=== PATIENT | female | born 1985 | race Caucasian/White ===

== ENCOUNTER → 2018-12-14 | Outpatient (CLI) | payer OTHER ==
[~2018-12-14] MED LIST: BIRTH CONTROL PILLS; CEPHALEXIN500 M1 PO; NORCO 325 MG-51 TAB PO
== END ==
LOC: DIA.ED
DX: O24.419 Gestational diabetes mellitus in pregnancy, unspecified control (principal); Z3A.30 30 weeks gestation of pregnancy
CPT/HCPCS: G0108

== ENCOUNTER → 2018-12-26 | Outpatient (CLI) | payer OTHER | LOC: DIA.ED 08:36 | DX: O24.419 Gestational diabetes mellitus in pregnancy, unspecified control (principal); Z3A.33 33 weeks gestation of pregnancy | CPT/HCPCS: G0108 ==

== ENCOUNTER → 2019-01-14 | Outpatient (CLI) | payer OTHER | LOC: DIA.ED 14:08 | DX: O24.419 Gestational diabetes mellitus in pregnancy, unspecified control (principal); Z3A.26 26 weeks gestation of pregnancy | CPT/HCPCS: G0108 ==

== ENCOUNTER → 2019-01-22 | Outpatient (CLI) | payer OTHER | LOC: DIA.ED 15:06 | DX: O24.419 Gestational diabetes mellitus in pregnancy, unspecified control (principal); Z3A.35 35 weeks gestation of pregnancy | CPT/HCPCS: G0108 ==

== ENCOUNTER 2019-02-17 10:53 | Inpatient (IN) | payer OTHER ==
[2019-02-17] VITALS (48 sets, daily range): BP systolic 113–137; BP diastolic 61–89; PULSE 86–112; TEMP 97.4–98.8
[~2019-02-17] VITALS: Ht 165.1 cm; Wt 82.3 kg
--- NOTE | 2019-02-17 11:00 | NUR ---
Presents to labor and delivery. States thinks water broke. Amnio test done, positive. Dr. Wood called and orders given to admit patient. Start iv, and start pitocin per policy.
--- NOTE | 2019-02-17 11:30 | NUR ---
Rests in bed, alert. Denies feeling any contractions. 1145 Iv start to left hand by student with this nurse at side. Lab draw done and sent to lab. Fluids of lactated ringers started.
--- NOTE | 2019-02-17 12:00 | NUR ---
Pitocin 2 dorene units iv started as ordered and per protocol. Denies feeling any contractions at this time.
[2019-02-17] MEDS ORDERED: PRENATAL MVI (12:17)
[2019-02-17] MEDS ORDERED: SLOW FE142 MG PO (12:18)
[2019-02-17 12:30] LABS: BASO % 0.2 % (0.0-2.0); EOS % 0.3 % (0-4.0); GRAN # 11.6 (1.4-6.5); GRAN % 81.3 % (42.2-75.2); HEMATOCRIT 37.8 % (37.0-47.0); HEMOGLOBIN 12.4 g/dl (12.5-16.0); LYMPH # 1.6 (1.2-3.4); LYMPH % 11.4 % (20.0-51.0); MEAN CELL VOLUME 87 fl (80.0-100.0); MEAN CORPUSCULAR HEMOGLOBIN 28 pg (27.0-31.0); MEAN CORPUSCULAR HGB CONC 33 g/dl (33.0-37.0); MONO # 0.8 (0.1-0.6); MONO % 5.7 % (1.7-9.3); PLATELET COUNT 189 K/mm3 (130-400); RED BLOOD COUNT 4.36 M/mm3 (4.10-5.30); REDCELL DISTRIBUTION WIDTH-CV 14.9 % (11.5-14.5)
--- NOTE | 2019-02-17 16:15 | NUR ---
Dr. Wood here. Visits with patient. Lets her know that she is going to rupture a fore bag. Moderate amount of bloody show noted. Pad changed, repostioned.
--- NOTE | 2019-02-17 16:30 | NUR ---
1640 Request to have epidural. Anesthesia notified of request.
--- NOTE | 2019-02-17 16:45 | NUR ---
1655 Anesthesia here, visits with patient and spouse. 1707 Space obtained by anesthesia Chase Patton. 1708 Catheter placed by anesthesia. 1709 Catheter placed by anesthesia. Lies back down.
--- NOTE | 2019-02-17 17:15 | NUR ---
Rests in bed, states feeling better.
--- NOTE | 2019-02-17 17:45 | NUR ---
Metzger catheter placed per sterile technique. Moderate amount of clear yellow fluid noted. Faith-care given.
--- NOTE | 2019-02-17 18:15 | NUR ---
Report received from Trell MULLIGAN. Plan of care explained to pt and who verbalize understanding. Pt just pushed epidural button for left sided pain. Pt WL at this time. Will reassess. 1849: Pt states no relief with epidural extra dose. Pt repositioned to LL with peanut ball. Will reassess. 1919: Still no relief with repositioning. SVE 3-4/80-2. Pt repositioned to HF and plan of care explained. Questions answered. 1922: Fide GANDHI notified of pts pain. Will come to bedside. 1934: Fide GANDHI at bedside to discuss options.
--- NOTE | 2019-02-17 20:25 | NUR ---
Fide FRONT DESK LEAD at bedside discussing pain medication options since extra interventions completed by Fide unsuccessful. Descision to replace epidural catheter decided. 2026: Pt repositioned to EOB for epidural replacement. Difficultly tracing FHR due to maternal positione. RN adjusting monitors. Pulse ox applied and tracing. 2039: Test dose administered by Fide FRONT DESK LEAD. See anesthesia records. 2044: Pt repostiioned to WL position. Plan of care and safety precautions explained. Will continue to monitor.
--- NOTE | 2019-02-17 21:30 | NUR ---
Pt took own BS. BS 133. Pt states she is not feeling any contractions since second epidural has been placed. 2133: SVE unchanged. Pt repositioned to WR and peanut ball placed. 2137: called and updated on pts status. See physican notification.
[2019-02-18] VITALS (20 sets, daily range): BP systolic 118–142; BP diastolic 62–95; PULSE 94–150; TEMP 97.8–99.7
--- NOTE | 2019-02-18 00:32 | NUR ---
Pt states she is starting to feel pressure with contractions. SVE 9-10/100/0. Pericare provided and pt repositioned into HF. Plan of care explained to pt. Questions answered. 0055: SVE C/+1. Pushing with contractions explained to pt. 0103: on her way to hospital at this time. 0110: at bedside and starts pushing with pt. 0135: Pt repositioned into footplates and prepped for delivery. 0140: Spontaneous vaginal delivery of viable male infant by . Pitocin stopped per protocol. to mothers chest where dried and stimulated by nursery RN. Cord clamped X2 and cut by FOB. Care of assumed by Sun MULLIGAN. 0143: Spontaneous delivery of intanct placenta by . Pitocin resummed at 333mus/hr per protocol. Fundal message performed for increased bleeding. Boggy uterus with large amounts of blood and clots noted. Straight catherization completed by provider. Fundus remains boggy with large amounts of bleeding and clots. Methergine requested per provider. This RN remains fundal message while repairs second degree laceration. 0148: Methergine 0.2 administered in left upper thigh. Fundal message by this RN continues with no change. 0151: Cytotec 800mcg administered rectally by . Fundus firming up with moderate amounts of bleeding noted with small clots noted. LR bolus infusing without difficulties. Pericare provided and pads changed. Pt repositioned in bed and ice pack applied. Plan of care explained to pt and who verbalize understanding. Will continue to monitor closely. 0200: at nurses station and updated on pts bleeding decreasing. Provider also updated on pts pulse being 140s-150. Temp of 99.6. LR bolus infusing. No new orders at this time, continue to observe closely. Pt update on plan of care.
--- NOTE | 2019-02-18 11:21 | NUR ---
Initial visit; Parents thanked Aircraft Maintenance Supervisor for offering congratulations and God's blessings for the of their son. Aircraft Maintenance Supervisor thanked family for choosing [facility].
--- NOTE | 2019-02-19 01:32 | NUR ---
Spoke with Dr. Tang for an update on pt's status and request to be discharge home due to baby's transfer to [facility]. Orders for discharge home with follow up care and instructions received.
--- NOTE | 2019-02-19 02:00 | NUR ---
Discharge instructions and follow up care reviewed with pt and . Both verbalized an understanding, agreed with the plan and states no questions or concerns at this time.
--- NOTE | 2019-02-19 04:45 | NUR ---
Pt discharged home.
== END 2019-02-19 04:45 | disposition home or self-care (01) | DRG 807 ==
LOC: LDRO 10:53 → LDR 10:58 → OB 11:00 → LDRO 11:00 → OB 02-18 06:42
PROVIDERS: ADMIT Obstetrics & Gynecology
PROC: 10E0XZZ Delivery of Products of Conception, External Approach (ICD-10-PCS; principal; 2019-02-18)
PROC: 0KQM0ZZ Repair Perineum Muscle, Open Approach (ICD-10-PCS; 2019-02-18)
DX: O42.92 Full-term premature rupture of membranes, unspecified as to length of time between rupture and onset of labor (principal); Z37.0 Single live birth; O24.420 Gestational diabetes mellitus in childbirth, diet controlled; O62.2 Other uterine inertia; O70.1 Second degree perineal laceration during delivery; Z3A.39 39 weeks gestation of pregnancy
CPT/HCPCS: J2210; J2405; J2590; J7120

== ENCOUNTER → 2019-04-09 | Outpatient (CLI) | payer OTHER ==
[~2019-04-09] MED LIST changes: +PRENATAL MVI; +SLOW FE142 MG PO
--- NOTE | 2019-04-09 14:14 | NUR ---
Pt, Cynthia Jenkins, presents to walk-in clinic with 7 week old baby boy, Alfredo Jenkins, for a evaluation. Pt states Alfredo pulls on the breast and releases during feedings, he has short feedings, she is wondering if her milk has enough fat in it and she has sore nipples. Alfredo was born by on [birth year] and weighed 6#11.9oz (3060 gms). Alfredo was seen at Dr. Hicks's office on 03/26/19 for his one month appointment and weighed 8#7oz. Today his weight is 9#5oz (4224 gms). He is exclusively breastmilk fed, getting bottles of EBM prn. No supplement is being used. Alfredo has a little trouble latching initially, pt advised on compression of the breast to get more areola covered and she states it feels better. While latched swallows are noted but does not sound like he is struggling with a fast let down or signs of oversupply. AFter nursing the right breast Alfredo had a gain of 32 gms. He nurses on the left and has the same, 32 gms, gain for a total of 64 gms or 2.2oz. Initially Alfredo appears content but then is head-bobbing on pt's chest. He is placed back to the right breast and has an additional 6gm gain for a total of 70 gms (2.5oz). Pt reports Alfredo is eating 10-12 times (q 0.5-2 hours in the daytime), and longest sleep at [facility] is 3 hours. She pumps x1 per day collecting about 90 ml in the morning. LC evaluates Alfredo's tongue, notes with elevation he has an indentation on the tip of his tongue and a groove down the center. He can lift and extend the tongue but it may have some tethers making it hard for him to remain latched well or transfer all the milk from the breast. He also has a thick upper lip frenulum and blanching is seen on the gums when the top lip is rolled up. Impression: Possible low milk supply, possible transfer issue based on less than expected transfer at this feeding and the frequency of feedings at 7 weeks of age. Possible tongue and/or upper lip tether. Plan of care: Pt will breastfeed and pump after for a few days to see if Alfredo is leaving milk behind. If she collects milk she can feed it back to him. If there is little to no milk collected, she will pump after each feeding to improve milk supply. Handout about increasing milk supply provided. Pt will wait to gather more information before having the lip and tongue evaluated by a care provider that manages treatment for tethers. F/U: Alfredo has an appointment next week with Dr. Hicks. requests pt contact her by phone or email later this week to report results of pumping. Questions invited and answered. Pt verbalizes understanding.
== END ==
LOC: OLC 13:12
DX: Z39.1 Encounter for care and examination of lactating mother (principal); Z71.89 Other specified counseling

== ENCOUNTER → 2020-12-02 | Outpatient (CLI) | payer OTHER ==
[~2020-12-02] MED LIST changes: +BONJESTA ER 201 EACH PO; +IBU800 M1 PO
== END ==
LOC: ZCOL.LAB 09:08
DX: Z20.822 Contact with and (suspected) exposure to COVID-19 (principal)

== ENCOUNTER 2020-12-04 06:23 | Inpatient (IN) | payer OTHER ==
[2020-12-04] VITALS (36 sets, daily range): BP systolic 113–136; BP diastolic 60–82; PULSE 71–112; TEMP 98.3–99.4
[~2020-12-04] VITALS: Ht 170.2 cm; Wt 83.2 kg
[~2020-12-04 06:23] MED LIST changes: -BONJESTA ER 201 EACH PO; -IBU800 M1 PO
--- NOTE | 2020-12-04 06:30 | NUR ---
Pt arrives on unit ambulatory with spouse for IOL. Changed into a clean gown. EFM and toco applied. VSS. Pt denies regular ctx, LOF, vaginal bleeding and reports GFM. IV started in LH. Labs drawn. LR infusing. Blood sugar obtained: 102. Admission assessment completed. Consents signed. Pt oriented to room. Updated on POC. Bed locked in low position. Call light within reach. No questions or concerns at this time.
[2020-12-04] MEDS ORDERED: BONJESTA ER 201 EACH PO (07:03)
[2020-12-04 07:25] LABS: BASO % 0.2 % (0.0-2.0); EOS % 0.2 % (0-4.0); GRAN # 6.8 (1.4-6.5); GRAN % 76.3 % (42.2-75.2); HEMOGLOBIN 11.7 g/dl (12.5-16.0); LYMPH # 1.6 (1.2-3.4); LYMPH % 17.9 % (20.0-51.0); MEAN CELL VOLUME 86 fl (80.0-100.0); MEAN CORPUSCULAR HEMOGLOBIN 29 pg (27.0-31.0); MEAN CORPUSCULAR HGB CONC 33 g/dl (33.0-37.0); MEAN PLATELET VOLUME 11.5 fl (7.4-10.4); MONO # 0.5 (0.1-0.6); MONO % 5.1 % (1.7-9.3); PLATELET COUNT 151 K/mm3 (130-400); RED BLOOD COUNT 4.08 M/mm3 (4.10-5.30); REDCELL DISTRIBUTION WIDTH-CV 15.1 % (11.5-14.5)
--- NOTE | 2020-12-04 10:05 | NUR ---
Pt sitting upright for epidural placement. Difficulty tracing FHR due to maternal position. RN at bedside adjusting monitors. FHR audible.
--- NOTE | 2020-12-04 13:50 | NUR ---
SVE per this RN C/+2. Dr. Corley notified. Requested to unit. 1405-Dr. Corley at bedside. Pt begins pushing with provider. Moves vertex well. 1409- of viable female attended by Dr. Corley. Cord clamped x 2 and cut from umbilicus. dried and placed on maternal abdomen. Care of to Denny Maria RN. Apgars 8/9. 1412- of placenta. Pitocin bolus infusing per protocol. Fundus firm at umbilicus. Lochia WNL. Second degree laceration repaired per provider. Pericare performed. Ice pack applied. Pt updated on POC. Bed locked in low position. Call light within reach. No questions or concerns at this time.
[2020-12-05 01:00] VITALS: BP 112/70; PULSE 85; TEMP 97.8
[2020-12-05 05:00] VITALS: BP 123/76; PULSE 82; TEMP 97.5
--- NOTE | 2020-12-05 06:30 | NUR ---
RECEIVED REPORT AT THIS TIME. INTO ROOM TO INTRODUCE SELF AND REVIEW PLAN OF CARE FOR THE DAY. QUESTIONS INVITED AND ANSWERED AT THIS TIME.
[2020-12-05 07:00] VITALS: BP 122/73; PULSE 89; TEMP 97.7
--- NOTE | 2020-12-05 12:23 | NUR ---
stopped by and offered congrats to patient.
[2020-12-05 16:00] VITALS: BP 120/69; PULSE 87; TEMP 98.3
[2020-12-05 21:30] VITALS: BP 128/67; PULSE 84; TEMP 98.3
--- NOTE | 2020-12-06 06:30 | NUR ---
REPORT RECIEVED AT THIS TIME. INTO ROOM TO INTRODUCE SELF AND REVIEW PLAN OF CARE FOR THE DAY. PT IN BED, ON BENCH AND BABY IN THE CRIB SLEEPING. UPDATED WHITEBOARD AND INVITED QUESTIONS. QUESTIONS ANSWERED.
--- NOTE | 2020-12-06 06:40 | NUR ---
PT REQUESTS MOTRIN AT THIS TIME FOR CRAMPING. DENIES PAIN BUT DESCRIBES CRAMPING UNCOMFORTABLE AND WANTS TO STAY ON TOP OF IT. MOTRIN GIVEN AT THIS TIME.
[2020-12-06 08:10] VITALS: BP 128/73; PULSE 82; TEMP 97.7
[2020-12-06] MEDS ORDERED: IBU800 M1 PO (09:34)
== END 2020-12-06 10:05 | disposition home or self-care (01) | DRG 768 ==
LOC: LDR 06:23 → OB 07:04
PROVIDERS: ADMIT Student in an Organized Health Care Education/Training Program
PROC: 10E0XZZ Delivery of Products of Conception, External Approach (ICD-10-PCS; principal; 2020-12-04)
PROC: 0U9GXZZ Drainage of Vagina, External Approach (ICD-10-PCS; 2020-12-04)
PROC: 0KQM0ZZ Repair Perineum Muscle, Open Approach (ICD-10-PCS; 2020-12-04)
PROC: 3E033VJ Introduction of Other Hormone into Peripheral Vein, Percutaneous Approach (ICD-10-PCS; 2020-12-04)
DX: O24.420 Gestational diabetes mellitus in childbirth, diet controlled (principal); Z37.0 Single live birth; O70.1 Second degree perineal laceration during delivery; N89.8 Other specified noninflammatory disorders of vagina; O34.63 Maternal care for abnormality of vagina, third trimester; Z3A.39 39 weeks gestation of pregnancy
CPT/HCPCS: J2590; J7120

== ENCOUNTER → 2020-12-08 | Outpatient (CLI) | payer OTHER ==
[~2020-12-08] MED LIST changes: +BONJESTA ER 201 EACH PO; +IBU800 M1 PO
--- NOTE | 2020-12-08 15:06 | NUR ---
Pt, Cynthia Jenkins, presents for outpatient consult with 4 day old baby boy, Jimbo Jenkins, because he does not latch. She is accompanied by her spouse. Madi was born on [birth year] by and weighed 7#12.2oz (3520 gms). He is pt's second baby. She nursed her first baby, after some complications, for about 9 months. Because of difficult latching, pt started pumping and supplementing EBM by bottle and also adds formula to meet volume expectations of 1-1.5oz per feeding. Pt is collecting about 1.5oz ave at this time, but has only pumped 4 times in the last 24 hours. Advised to increase frequency of pumping if baby does not latch well each feeding. Today Jimbo weighs 7#7.5oz (3388 gms). LC evaluates Jimbo' mouth for tongue tie and notes he has a high anterior palate and possible tongue tie. LC cannot elicit the tongue to extend. Pt works on latching Jimbo, she cannot get him latch. LC assists with coordination of latch while pt holds weight of breast. Good latch noted after a few attempts. After nursing the right breast Jimbo has a gain of 16 gms (0.6oz). Pt is able to get him latched with less assistance on the left breast. Total gain after feeding was 22 gms (0.8oz). Jimbo is still rooting and is fed 44ml formula by bottle. POC: Breastfeed q 2-3 hours, offer 1-2oz EBM or formula, pump and save milk for next feeding. F/U: MondayDecember 11 @ 1500. Questions invited and answered. F/U:
== END ==
LOC: LAC 14:12
DX: Z39.1 Encounter for care and examination of lactating mother (principal); Z71.89 Other specified counseling

== ENCOUNTER → 2020-12-11 | Outpatient (CLI) | payer OTHER ==
--- NOTE | 2020-12-11 15:17 | NUR ---
Pt, Cynthia Jenkins, presents for outpatient consult with one week old baby boy, Jimbo Jenkins to evaluate . Jimbo was born on [birth year] weighed 7#12.2oz (3520 gms). This family was seen by this LC on 12/08/20 because she was not able to get Choi to latch well. She was pumping and bottle feeding at that time, but with coaching, she was able to get Barraza to latch. She has been regularly since the previous appt. Today Jimbo weighs 7#5.9oz (3342 gms), a loss of 1.6oz from 3 days ago. Pt reports q 2-3 hours, supplementing 1-2oz p , and pumping 2.5-3.5oz p . She reports Jimbo has qs voids, and yesterday 3 dark yellow stools. Pt places Jimbo to breast, appearing to have a good latch, swallows noted initially, then his effort declines after a few minutes. He remains on the first breast ~8 minutes. On the right he does not stay attached as long, LC assists but his effort after initial latch is minimal. Weight gain from the left breast [id number], from the right 12 gms for a total gain of 28 gms (0.9oz) Jimbo is fed 2oz EBM by this LC while pt pumps. She collects 3+oz. Based on volume available, it appears Jimbo has a tranfer problem at this time. Pt will continue to breastfeed, supplement 2oz per feeding, and follow with pumping. If this gets too laborious, she may pump and bottle at some feedings. Hopefully as Jimbo grows, his tranfer ability will improve. POC: Breastfeed, supplement 2oz per feeding, pump. F/U: Pt will contact this LC after she has worked with the feeding plan and feels baby's effort is improving to re-evaluate transfer. As scheduled with Dr. Hicks. Questions invited and answered.
== END ==
LOC: LAC 12:00
DX: Z39.1 Encounter for care and examination of lactating mother (principal); Z71.89 Other specified counseling